=== PATIENT | female | born 1970 | race Caucasian/White ===

== ENCOUNTER 2018-04-04 21:00 | Inpatient (IN) ==
[2018-04-05] MEDS ORDERED: Naloxone 0.4 MG/ML INJ IVP PRN (02:40)
--- NOTE | 2018-04-05 03:31 | Internal Med History&Physical ---
Date of Encounter: 04/05/18 Time of Encounter: 03:23 Internal Medicine - H&P: HPI Chief complaint: Abscess History of present illness: Ms. Gunter is a 47 year old female with past medical history of hypertension, FERMÍN and GERD who initially presented from [facility] with a growing mass on her back which has been progressively getting worse for the past month. She has had a cyst at the same location for the past 10 years. Patient was recently started on antibiotics as the mass seemed to be infected with increasing pain and swelling. She now reports that symptoms are affecting both of her arms in terms of the pain. Patient denies any recent trauma to the region but does report fever and chills as well as nausea. Pain is currently 8 out of 10 in intensity, worse with movement. She denies any upper extremity arm weakness, numbness or tingling. Further denies any numbness tingling or weakness in her lower extremities. Patient had seen a label designer and was planning on doing surgery. However her symptoms continued to get worse and she could not wait any further. A CT scan of the back was performed at [facility] which showed fluid and gas collection within the midline subcutaneous tissue of the upper posterior chest wall with adjacent stranding overlying skin thickening. The collection measured up to 5.3 cm suggestive of an abscess. Patient was mildly tachycardic with a heart rate of 108 soft blood pressure of 103/68. Labs are significant for an elevated white count of 14.4. Surgery was consulted and Dr. Jung reviewed the case and will take the patient for surgical intervention tomorrow morning. Past Med Surg Social Fam HX - Past Medical History Medical history: GERD, hypertension Psychiatric history: no psych history - Past Surgical History Surgical History: cholecystectomy - Social History Smoking Status: Never smoker Smokeless Tobacco Status: No Alcohol use: none Drug use: none Internal Medicine - H&P: Meds Atenolol [Tenormin] 25 mg PO DAILY 04/04/18 [History] BuPROPion [Wellbutrin] 100 mg PO DAILY 04/04/18 [History] Ketorolac [Toradol] 10 mg PO Q6HR 04/04/18 [History] Omeprazole [PriLOSEC] 20 mg PO DAILY 04/04/18 [History] Sulfamethoxazole/Trimeth DS [Bactrim DS] 1 each PO BID 04/04/18 [History] 3 Allergy/AdvReac Type Severity Reaction Status Date / Time codeine Allergy See Verified 04/04/18 16:40 Comments All Systems PM: A 10-system review of systems was performed and is negative for pertinent findings except as documented above in the HPI. - Constitutional Constitutional: no chills, no fever(s), no night sweats - EENT Eyes: no change in vision, no discharge, no pain, no photophobia Ears: no ear discharge, no ear pain, no tinnitus Nose, mouth and throat: no dysphagia, no nasal discharge, no neck pain, no sore throat - Cardiovascular Cardiovascular ROS IM: no chest pain, no diaphoresis, no dyspnea, no lightheadedness, no palpitations, no syncope - Respiratory Respiratory: no cough, no dyspnea, no wheezing, no excessive phlegm production - Gastrointestinal Gastrointestinal: no abdominal pain, no diarrhea, no hematemesis, no hematochezia, no melena, no nausea, no vomiting - Genitourinary Genitourinary: no change in urinary stream, no dysuria, no flank pain, no hematuria - Musculoskeletal Musculoskeletal ROS IM: no numbness, no tingling - Integumentary Integumentary IM: no rash, no unusual bruising - Neurological Neurological ROS: no confusion, no convulsions, no focal weakness, no numbness, no tingling, no tremor(s) - Hematologic/Lymphatic Hematologic/Lymphatic: no easy bruising - Constitutional Vitals: Temp Pulse Resp BP Pulse Ox 98.6 F 77 18 137/81 98 04/05/18 00:47 04/05/18 00:47 04/05/18 00:47 04/05/18 00:47 04/05/18 01:34 Exam: General: Alert and oriented 3. Lying in bed not in acute distress though in pain with movement Skin: Large edematous erythematous region measuring approximately 6 cm x 6 cm on the upper posterior mid thorax. Tenderness elicited to palpation. Lesion is firm and nonfluctuant. HEENT:EOM, pupils equal, round and reactive. Cardiovascular: Normal S1 & S2, no rubs, reactive 6 systolic murmur best appreciated in the second right intercostal space. No JVD. Pulse regular. Lungs:Normal breath sounds, no wheezes or crackles. Abdomen:Soft, non-tender, no rigidity. Extremities:No deformity, no edema or tenderness, no joint swelling or clubbing. Neurological:Normal cognition and motor skills. Pulses:Carotid and radial pulses normal +2. Rest of the physical exam is non contributory - Assessment and plan (1) Abscess of skin or subcutaneous tissue Current Visit: No Status: Acute Assessment and plan: Large mid posterior thorax abscess as evidenced on clinical examination and CT scan findings of fluid and gas collection within the midline subcutaneous tissues of the upper and posterior chest wall with adjacent stranding overlying skin thickening. Measuring 5.3 cm. Patient mildly septic as evidenced by mild tachycardia and an elevated white blood count of 14.4. Lactic acid and [place] was 0.6. Imaging reviewed by Dr. Almaguer with surgery and plan to take patient to the OR tomorrow. We will continue patient on vancomycin and Zosyn. Continue IV fluids. Qualifiers: Qualified Code(s): L02.91 - Cutaneous abscess, unspecified (2) Systolic murmur Current Visit: Yes Status: Acute Assessment and plan: Systolic murmur best appreciated in the right second intercostal space more so. Suspicion for endocarditis in the setting of complicated abscess. Would recommend transthoracic echocardiogram for further assessment. If blood cultures positive, may need to consider a BARBER if findings negative on TTE. (3) Hyponatremia Current Visit: Yes Status: Acute Assessment and plan: Mild in the setting of sepsis. Replete with IV fluids repeat chemistry in the morning. (4) Essential (primary) hypertension Current Visit: Yes Status: Acute Assessment and plan: Blood pressure running soft. Would consider holding atenolol for now. - Time Spent With Patient Total time spent is greater than 50% in coordination of care (as documented) at patient's floor/unit and/or counseling patient:
[2018-04-05] MEDS: Ketorolac 15 MG/ML VIAL IVP PRN ×2 (04:09→10:13)
[2018-04-05] MEDS: 0.9 % Sodium Chloride 1,000 ML IVC SCH ×2 (04:10→12:06)
[2018-04-05] MEDS: *HR* Heparin 5,000 UNIT/ML VIAL SQ SCH ×3 (06:02→21:48)
[2018-04-05] MEDS: Piperacillin/Tazobactam 3.375 GM in 0.9 % Sodium Chloride Mini Bag 100 ML IVPB SCH ×2 (08:15→15:24)
[2018-04-05 08:21] LABS: Alanine Aminotransferase 21 Units/L (7-52); Albumin 3.3 g/dL (3.5-5.7); Albumin/Globulin Ratio 1.1 (1.1-2.2); Alkaline Phosphatase 84 Units/L (34-104); Aspartate Amino Transferase 21 Units/L (13-39); BUN/Creatinine Ratio 16 (6-26); Bilirubin,Total 0.5 mg/dL (0.3-1.0); Blood Urea Nitrogen 9 mg/dL (6-20); Calcium 8.1 mg/dL (8.6-10.3); Carbon Dioxide 16 mEq/L (23-29); Chloride 107 mEq/L (98-107); Globulin 2.9 g/dL (2.4-3.5); Glucose 92 mg/dL (70-105); Osmolality,Calculated 276 (280-300); Potassium 3.9 mEq/L (3.5-5.1); Sodium 134 mEq/L (136-145); Total Protein 6.2 g/dL (6.4-8.9); eGFR For Non-African Americans > 60 (> 60)
[2018-04-05 08:52] LABS: Basophils % 0.3 %; Eosinophils # 0.1 K/mcL (0.0-0.6); Eosinophils % 0.6 %; Hematocrit 36.3 % (35.3-44.9); Hemoglobin 12.1 g/dL (11.5-15.4); Immature Granulocytes % 0.4 % (0-4); Lymphocytes # 1.4 K/mcL (0.6-4.6); Lymphocytes % 10.8 %; Mean Corpuscular HGB Conc 33.3 g/dL (31.6-35.5); Mean Corpuscular Hemoglobin 29.3 pg (28.0-33.3); Mean Platelet Volume 10.5 fL (9.4-12.4); Monocytes # 1.3 K/mcL (0.0-1.3); Monocytes % 10.2 %; Neutrophils # 9.8 K/mcL (1.6-8.9); Platelet Count 222 K/mcL (140-400); Red Blood Count 4.13 M/mcL (3.82-4.97); Red Cell Distribution Width 12.4 % (11.5-14.5); Segmented Neutrophils % 77.7 %
[2018-04-05 08:59] LABS: Mean Corpuscular Volume 87.9 fL (83.0-100.0)
--- NOTE | 2018-04-05 11:56 | Event Note ---
Date of Encounter: 04/05/18 Time of Encounter: 11:53 See full H&P by my colleague from earlier today for details. Upper back abscess, pain is about the same, no fevers, chills, rigors. Noted BP is lower than what was at arrival. Pain control is acceptable per patient. - will hold atenolol for now due to risk of sepsis - cont Zosyn/vancomycin - NPO until seen by GS (discussed by phone)
--- NOTE | 2018-04-05 14:31 | Operative Note ---
Date of procedure: 04/05/18 Pre-op diagnosis: posterior trunk mass Post-op diagnosis: same Procedure: Incision and drainage of back abscess Anesthesia: local Surgeon: Jalen Lind Was there an engineer assistant present: No Estimated blood loss (cc): 2 Specimen: 0 Condition: stable Disposition: floor Procedure in Detail: The area was prepped and draped. The area was injected with lidocaine. The area was incised with an 11 blade knife. Significant pus was drained. Packing was applied.
[2018-04-05] MEDS: traMADol 50 MG TABLET PO PRN ×2 (15:24→21:52)
[2018-04-06] MEDS: Piperacillin/Tazobactam 3.375 GM in 0.9 % Sodium Chloride Mini Bag 100 ML IVPB SCH ×4 (00:17→23:18)
[2018-04-06 02:12] LABS: Hematocrit 32.4 % (35.3-44.9); Mean Corpuscular Hemoglobin 29.3 pg (28.0-33.3); Mean Corpuscular Volume 86.4 fL (83.0-100.0); Mean Platelet Volume 10.3 fL (9.4-12.4); Platelet Count 233 K/mcL (140-400); Red Blood Count 3.75 M/mcL (3.82-4.97); Red Cell Distribution Width 12.6 % (11.5-14.5)
[2018-04-06 02:35] LABS: BUN/Creatinine Ratio 16 (6-26); Blood Urea Nitrogen 9 mg/dL (6-20); Calcium 8.3 mg/dL (8.6-10.3); Carbon Dioxide 24 mEq/L (23-29); Chloride 111 mEq/L (98-107); Glucose 110 mg/dL (70-105); Osmolality,Calculated 273 (280-300); Potassium 3.8 mEq/L (3.5-5.1); Sodium 132 mEq/L (136-145); eGFR For Non-African Americans > 60 (> 60)
[2018-04-06] MEDS: *HR* Heparin 5,000 UNIT/ML VIAL SQ SCH ×3 (06:08→20:57)
[2018-04-06] MEDS: traMADol 50 MG TABLET PO PRN ×2 (06:12→18:34)
[2018-04-06] MEDS ORDERED: Ondansetron 4 MG/2 ML VIAL IVP ONE (09:59)
[2018-04-06] MEDS ORDERED: *HR* FentaNYL (PF) 100 MCG/2 ML VIAL IVP ONE (09:59)
--- NOTE | 2018-04-06 10:00 | General Surgery Progress Note ---
Date of Encounter: 04/06/18 Time of Encounter: 10:00 - Assessment and Plan (1) Abscess of skin or subcutaneous tissue Current Visit: Yes Status: Acute She is POD #1 of incision and drainage of upper mid back abscess. The area remains cellulitic and draining copious amounts of purulent drainage. The area was repacked with 1/4 inch iodoform gauze and covered with a dry dressing. Recommend patient remains in the hospital for another 24 to 48 hours pending cultures and clinical course. She will need home healthcare set up as she has no one to do packing. Referral has been made to social work. Qualifiers: Site of cutaneous abscess: trunk Site of cutaneous abscess of trunk: back Qualified Code(s): L02.212 - Cutaneous abscess of back [any part, except buttock] Subjective Patient reports: no new complaints, still having pain, voiding w/o difficulty, flatus, bowel movement, afebrile Objective Vital Signs - Last 8 Hours Temp Pulse Resp BP Pulse Ox 04/06/18 06:41 97.2 F L 69 15 111/68 97 04/06/18 04:44 98.3 F 70 18 91/58 96 04/06/18 04:00 21 96 Intake and Output 04/05/18 04/06/18 04/06/18 23:59 07:59 15:59 Intake Total 100 / 100 100 / 100 360 / 360 Output Total 1500 / 1500 Balance 100 / 100 -1400 / -1400 360 / 360 Intake: IV Fluids 100 / 100 100 / 100 Zosyn 3.375 GM In 0.9 % Sodium 100 / 100 100 / 100 Chloride (Mini-Bag +) 100 ML @ 25 mls/hr IVPB Q8HR [facility] Rx#: [id number] Oral 0 / 0 0 / 0 360 / 360 Output: Urine 1500 / 1500 Other: Meal Dinner Breakfast Percent of Meal Consumed 85% 75% Weight 126.2 kg Patient Weight 04/06/18 23:59 Weight 126.2 kg - General physical appearance no distress, moderate pain - Eyes normal ocular movement - ENT atraumatic, normocephalic - Neck Neck exam: trachea midline, no venous distension - Respiratory normal expansion, normal respiratory effort, clear to auscultation - Cardiovascular Cardiovascular exam: Present: RRR - Abdomen Abdomen: Present: bowel sounds present, soft, non tender - Incision Incision: Present: open (mid-upper back) - Neurologic normal coordination, normal sensation - Musculoskeletal normal posture - Psychiatric oriented to time, oriented to person, oriented to place, speech is normal, memory intact - Labs 04/06/18 01:44 04/06/18 01:44 Diabetes panel 04/06/18 Range/Units 01:44 Sodium 132 L (136-145) mEq/L Potassium 3.8 (3.5-5.1) mEq/L Chloride 111 H (98-107) mEq/L Carbon Dioxide 24 (23-29) mEq/L BUN 9 (6-20) mg/dL Creatinine 0.57 L (0.60-1.20) mg/dL Glucose 110 H (70-105) mg/dL Calcium 8.3 L (8.6-10.3) mg/dL Calcium panel 04/06/18 Range/Units 01:44 Calcium 8.3 L (8.6-10.3) mg/dL Pituitary panel 04/06/18 Range/Units 01:44 Sodium 132 L (136-145) mEq/L Potassium 3.8 (3.5-5.1) mEq/L Chloride 111 H (98-107) mEq/L Carbon Dioxide 24 (23-29) mEq/L BUN 9 (6-20) mg/dL Creatinine 0.57 L (0.60-1.20) mg/dL Glucose 110 H (70-105) mg/dL Calcium 8.3 L (8.6-10.3) mg/dL Adrenal panel 04/06/18 Range/Units 01:44 Sodium 132 L (136-145) mEq/L Potassium 3.8 (3.5-5.1) mEq/L Chloride 111 H (98-107) mEq/L Carbon Dioxide 24 (23-29) mEq/L BUN 9 (6-20) mg/dL Creatinine 0.57 L (0.60-1.20) mg/dL Glucose 110 H (70-105) mg/dL Calcium 8.3 L (8.6-10.3) mg/dL Consult Discharge Plan - Plan Referrals: Kat Starkey, STAFFING COORDINATOR [Primary Care Provider] -
[2018-04-06] MEDS ORDERED: OXYCODONE Oral CONC 10 MG/0.5 ML ORAL.SYG SL ONE (10:40)
[2018-04-06] MEDS ORDERED: Ondansetron ODT 4 MG TAB.RAPDIS SL ONE (10:41)
--- NOTE | 2018-04-06 17:06 | Internal Med Progress Note ---
Hospitalist Progress Note - Encounter Date of Encounter: 04/06/18 Time of Encounter: 17:04 - Subjective Interval History: Pt states back painful but on pain medication. Denies fever, chills, N/V or diarrhea. Denies CP or SOB. at bedside. - Exam Vitals: Temp Pulse Resp BP Pulse Ox 98.2 F 66 18 97/62 95 04/06/18 15:37 04/06/18 15:37 04/06/18 15:37 04/06/18 15:37 04/06/18 15:37 Exam: General: Alert and oriented 3. Lying in bed not in acute distress though in pain with movement Skin: Large edematous erythematous region measuring approximately 6 cm x 6 cm on the upper posterior mid thorax. Tenderness elicited to palpation. Positive copious amount of drainage. Dressing change per surgery this am. HEENT:EOM, pupils equal, round and reactive. Cardiovascular: Normal S1 & S2, no rubs, reactive 6 systolic murmur best appreciated in the second right intercostal space. No JVD. Pulse regular. Lungs:Normal breath sounds, no wheezes or crackles. Abdomen:Soft, non-tender, no rigidity. Extremities:No deformity, no edema or tenderness, no joint swelling or clubbing. Neurological:Normal cognition and motor skills. Pulses:Carotid and radial pulses normal +2. Rest of the physical exam is non contributory - Assessment and Plan (1) Abscess of skin or subcutaneous tissue Current Visit: Yes Status: Acute Assessment and Plan: Large mid posterior thorax abscess as evidenced on clinical examination and CT scan findings of fluid and gas collection within the midline subcutaneous tissues of the upper and posterior chest wall with adjacent stranding overlying skin thickening. Measuring 5.3 cm. Patient septic on admission as evidenced by mild tachycardia and an elevated white blood count of 14.4. Lactic acid and [place] was 0.6. Imaging reviewed by Dr. Almaguer, surgery team. POD #1 of incision and drainage of upper mid back abscess. Area continues to drain copious amount of purulent drainage. Not planing on taking ot surgery for now will continue patient on vancomycin and Zosyn. Continue IV fluids. Awaiting results cultures and sensitivity. (2) Essential (primary) hypertension Current Visit: Yes Status: Acute Assessment and Plan: Atenolo 25 mg PO QD, however, pt's BP on low side. (3) Hyponatremia Current Visit: Yes Status: Acute Assessment and Plan: Hyponatremia. Will reassess following IVF. (4) Systolic murmur Current Visit: Yes Status: Acute Assessment and Plan: Will check Echo if not already done. DVT Prophylaxis: Heparin - Summary of Assessment and Plan Summary of Assessment and Plan: Ms. Gunter is a 47 year old female with past medical history of hypertension, FERMÍN and GERD who initially presented from [facility] with a growing mass on her back which has been progressively getting worse for the past month. She has had a cyst at the same location for the past 10 years. Patient was recently started on antibiotics as the mass seemed to be infected with increasing pain and swelling. She now reports that symptoms are affecting both of her arms in terms of the pain. Patient denies any recent trauma to the region but does report fever and chills as well as nausea. Pain is currently 8 out of 10 in intensity, worse with movement. Pt is s/p I and D of infected cyst. - Time Spent with Patient Total time spent is greater than 50% in coordination of care (as documented) at patient's floor/unit and/or counseling patient: less than 15 minutes Plan of Care Discussed with: patient Internal Medicine: Result - Labs CBC & Chem 7: 04/06/18 01:44 04/06/18 01:44 Labs: Short CBC 04/06/18 Range/Units 01:44 WBC 9.1 (4.3-11.1) K/mcL Hgb 11.0 L (11.5-15.4) g/dL Hct 32.4 L (35.3-44.9) % Plt Count 233 (140-400) K/mcL BMP 04/06/18 01:44 Sodium 132 L Potassium 3.8 Chloride 111 H Carbon Dioxide 24 BUN 9 Creatinine 0.57 L Glucose 110 H Calcium 8.3 L Consult Discharge Plan - Plan Additional Instructions: Awaiting culture results and antibiotics will be adjusted as deemed appropriate. Possibly in 24 to 48 hours. Referrals: Kat Starkey, ELECTRIC LIFT TRUCK DRIVER [Primary Care Provider] - (1) Abscess of skin or subcutaneous tissue Qualifiers: Site of cutaneous abscess: trunk Site of cutaneous abscess of trunk: back Qualified Code(s): L02.212 - Cutaneous abscess of back [any part, except buttock ]
[2018-04-06] MEDS: Acetaminophen 325 MG TABLET PO PRN (20:57)
[2018-04-07] MEDS: *HR* Heparin 5,000 UNIT/ML VIAL SQ SCH ×3 (05:32→20:38)
[2018-04-07] MEDS: Piperacillin/Tazobactam 3.375 GM in 0.9 % Sodium Chloride Mini Bag 100 ML IVPB SCH ×2 (08:25→16:10)
--- NOTE | 2018-04-07 10:20 | Internal Med Progress Note ---
Hospitalist Progress Note - Encounter Date of Encounter: 04/07/18 Time of Encounter: 10:20 - Exam Vitals: Temp Pulse Resp BP Pulse Ox 98.3 F 61 14 103/69 98 04/07/18 07:17 04/07/18 07:17 04/07/18 07:17 04/07/18 07:17 04/07/18 07:17 Exam: General: Alert and oriented 3. Lying in bed not in acute distress though in pain with movement Skin: Large edematous erythematous region measuring approximately 6 cm x 6 cm on the upper posterior mid thorax. Tenderness elicited to palpation. Positive copious amount of drainage. Dressing change per surgery this am. HEENT:EOM, pupils equal, round and reactive. Cardiovascular: Normal S1 & S2, no rubs, reactive 6 systolic murmur best appreciated in the second right intercostal space. No JVD. Pulse regular. Lungs:Normal breath sounds, no wheezes or crackles. Abdomen:Soft, non-tender, no rigidity. Extremities:No deformity, no edema or tenderness, no joint swelling or clubbing. Neurological:Normal cognition and motor skills. Pulses:Carotid and radial pulses normal +2. Rest of the physical exam is non contributory - Assessment and Plan (1) Sepsis Current Visit: Yes Status: Acute Assessment and Plan: Had elevated WBC and purulent abscess on admission with subjective fevers. S/p incision and drainage. Continue vanc and zosyn. Follow up cultures (2) Abscess of skin or subcutaneous tissue Current Visit: Yes Status: Acute Assessment and Plan: Large mid posterior thorax abscess as evidenced on clinical examination and CT scan findings of fluid and gas collection within the midline subcutaneous tissues of the upper and posterior chest wall with adjacent stranding overlying skin thickening. Measuring 5.3 cm. Patient mildly septic as evidenced by mild tachycardia and an elevated white blood count of 14.4. POD #2 a/p incision adn drainage of upper mid back abscess. Continue on vanc and zosyn. Follow up cultures. WBC trending down (3) Essential (primary) hypertension Current Visit: Yes Status: Acute Assessment and Plan: Continue atenolol. (4) Hyponatremia Current Visit: Yes Status: Acute Assessment and Plan: Continue IV fluids with normal saline as needed (5) Systolic murmur Current Visit: Yes Status: Acute Assessment and Plan: Systolic murmur best appreciated in the right second intercostal space more so. Suspicion for endocarditis in the setting of complicated abscess. Follow up 2D echo and blood cultures DVT Prophylaxis: Heparin sc - Time Spent with Patient Total time spent is greater than 50% in coordination of care (as documented) at patient's floor/unit and/or counseling patient: Internal Medicine: Result - Labs CBC & Chem 7: 04/06/18 01:44 04/06/18 01:44 Consult Discharge Plan - Plan Instructions: Abscess (GEN) Additional Instructions: Awaiting culture results and antibiotics will be adjusted as deemed appropriate. Possibly in 24 to 48 hours. Referrals: Thelma Lind CNP [Advanced Practice Nurse] - 04/15/18 9:15 am Kat Starkey CNP [Primary Care Provider] - Prescriptions: Adhesive Tape [Paper Tape] 1 each TP AD #1 tape Docusate Sodium [Colace] 100 mg PO BID #30 capsule Gauze Bandage [Gauze] 4 each TP AD 30 Days #120 bandage HYDROcodone/Acet 5/325 mg [[place] 5-325 mg] 1 tab PO Q6H PRN 7 Days #28 tab PRN Reason: Pain Ibuprofen 800 mg PO Q8H 30 Days #30 tablet Sodium Chloride [Mesalt] 1 each TP AD #4 bandage (2) Abscess of skin or subcutaneous tissue Qualifiers: Site of cutaneous abscess: trunk Site of cutaneous abscess of trunk: back Qualified Code(s): L02.212 - Cutaneous abscess of back [any part, except buttock ]
--- NOTE | 2018-04-07 11:28 | General Surgery Progress Note ---
Date of Encounter: 04/07/18 Time of Encounter: 10:50 - Assessment and Plan (1) Abscess of skin or subcutaneous tissue Current Visit: Yes Status: Acute She is POD #2 of incision and drainage of upper mid back abscess. The surround cellulitis/erythema has significantly improved. The areas of blisters have resolved, there is minor sloughing noted. There is a large amount of purulent drainage in the wound. We did switch to Mesalt [place] accordingly. She will require home health care for packing (please send 24-hours worth of supplies when patient is d/c'd). OK to d/c when C is in place; antibiotics per primary service. She has a follow-up with surgery on 04/15/2108 at 0915 with Thelma Lind APRN. Surgery will sign off at this time Thank you for allowing us to participate in Ms. Gunter's care. Qualifiers: Site of cutaneous abscess: trunk Site of cutaneous abscess of trunk: back Qualified Code(s): L02.212 - Cutaneous abscess of back [any part, except buttock] Subjective Patient reports: no new complaints, feels better, still having pain, pain is less, voiding w/o difficulty, flatus, bowel movement, afebrile Objective Vital Signs - Last 8 Hours Temp Pulse Resp BP Pulse Ox 04/07/18 07:17 98.3 F 61 14 103/69 98 04/07/18 04:07 97.6 F 66 14 99/61 98 04/07/18 03:40 19 94 Intake and Output 04/06/18 04/07/18 04/07/18 23:59 07:59 15:59 Intake Total 590 / 590 750 / 750 Output Total 600 / 600 0 / 0 Balance -10 / -10 750 / 750 Intake: IV Fluids 350 / 350 350 / 350 Zosyn 3.375 GM In 0.9 % Sodium 100 / 100 100 / 100 Chloride (Mini-Bag +) 100 ML @ 25 mls/hr IVPB Q8HR [facility] Rx#: [id number] Vancocin 1,250 MG In 0.9 % 250 / 250 250 / 250 Sodium Chloride 250 ML @ 166. 667 mls/hr IVPB Q12H [facility] Rx#: [id number] Oral 240 / 240 400 / 400 Output: Urine 600 / 600 0 / 0 Other: Meal Dinner Percent of Meal Consumed 50% Weight 126.6 kg Patient Weight 04/07/18 23:59 Weight 126.6 kg - General physical appearance no distress, moderate pain - ENT normal nares, normal mucosa - Neck Neck exam: trachea midline - Respiratory normal expansion, normal respiratory effort, clear to auscultation - Cardiovascular Cardiovascular exam: Present: RRR - Abdomen Abdomen: Present: bowel sounds present, soft, non tender Hernia: none - Integumentary no abnormal pigmentation, other (See A/P for description) - Neurologic CN 2-12 grossly intact, normal coordination, normal sensation - Musculoskeletal normal posture - Psychiatric oriented to time, oriented to person, oriented to place, speech is normal, memory intact - Labs 04/06/18 01:44 04/06/18 01:44 Consult Discharge Plan - Plan Instructions: Abscess (GEN) Additional Instructions: Awaiting culture results and antibiotics will be adjusted as deemed appropriate. Possibly in 24 to 48 hours. Referrals: Kat Starkey CNP [Primary Care Provider] - Thelma Lind CNP [Advanced Practice Nurse] - 04/15/18 9:15 am Prescriptions: Adhesive Tape [Paper Tape] 1 each TP AD #1 tape Docusate Sodium [Colace] 100 mg PO BID #30 capsule Gauze Bandage [Gauze] 4 each TP AD 30 Days #120 bandage HYDROcodone/Acet 5/325 mg [[place] 5-325 mg] 1 tab PO Q6H PRN 7 Days #28 tab PRN Reason: Pain Ibuprofen 800 mg PO Q8H 30 Days #30 tablet Sodium Chloride [Mesalt] 1 each TP AD #4 bandage
[2018-04-07] MEDS ORDERED: Ketorolac 15 MG/ML VIAL IVP PRN (11:32)
[2018-04-07] MEDS ORDERED: traMADol 50 MG TABLET PO PRN (11:32)
[2018-04-07] MEDS ORDERED: Perflutren Lipid Microsphere 1.3 ML in 0.9 % Sodium Chloride 8.7 ML IVP ONE ×2 (15:10→15:30)
[2018-04-07] MEDS ORDERED: Perflutren Lipid Microsphere 2 ML VIAL ONE (15:15)
[2018-04-07] MEDS: Acetaminophen 325 MG TABLET PO PRN (20:38)
[2018-04-08] MEDS: *HR* Heparin 5,000 UNIT/ML VIAL SQ SCH (05:21)
[2018-04-08 05:58] LABS: Basophils # 0.1 K/mcL (0.0-0.2); Basophils % 0.9 %; Eosinophils # 0.3 K/mcL (0.0-0.6); Eosinophils % 4.8 %; Hematocrit 36.9 % (35.3-44.9); Hemoglobin 12.3 g/dL (11.5-15.4); Immature Granulocytes % 0.5 % (0-4); Lymphocytes # 1.6 K/mcL (0.6-4.6); Lymphocytes % 26.8 %; Mean Corpuscular HGB Conc 33.3 g/dL (31.6-35.5); Mean Corpuscular Hemoglobin 29.1 pg (28.0-33.3); Mean Corpuscular Volume 87.2 fL (83.0-100.0); Monocytes # 0.4 K/mcL (0.0-1.3); Monocytes % 6.2 %; Neutrophils # 3.5 K/mcL (1.6-8.9); Platelet Count 292 K/mcL (140-400); Red Blood Count 4.23 M/mcL (3.82-4.97); Red Cell Distribution Width 12.1 % (11.5-14.5); Segmented Neutrophils % 60.8 %
[2018-04-08 06:19] LABS: BUN/Creatinine Ratio 13 (6-26); Blood Urea Nitrogen 8 mg/dL (6-20); Calcium 8.6 mg/dL (8.6-10.3); Carbon Dioxide 29 mEq/L (23-29); Chloride 105 mEq/L (98-107); Glucose 103 mg/dL (70-105); Magnesium 1.9 mg/dL (1.6-2.6); Osmolality,Calculated 287 (280-300); Phosphorous 3.2 mg/dL (2.7-4.5); Sodium 139 mEq/L (136-145); eGFR For Non-African Americans > 60 (> 60)
[2018-04-08 07:25] VITALS: BP 154/88
--- NOTE | 2018-04-08 07:58 | Discharge Summary ---
Orders not resulted at time of discharge: Pending orders 04/05/18 13:24 Culture,Blood [BC] Routine 04/09/18 04:00 Basic Metabolic Panel AM 0400 CBC [Complete Blood Count] [HEME] AM 0400 Magnesium AM 0400 Phosphorous AM 0400 04/10/18 04:00 Basic Metabolic Panel AM 0400 CBC [Complete Blood Count] [HEME] AM 0400 Magnesium AM 0400 Phosphorous AM 0400 04/11/18 04:00 Basic Metabolic Panel AM 0400 CBC [Complete Blood Count] [HEME] AM 0400 Magnesium AM 0400 Phosphorous AM 0400 04/12/18 04:00 Basic Metabolic Panel AM 0400 CBC [Complete Blood Count] [HEME] AM 0400 Magnesium AM 0400 Phosphorous AM 0400 04/13/18 04:00 Basic Metabolic Panel AM 0400 CBC [Complete Blood Count] [HEME] AM 0400 Magnesium AM 0400 Phosphorous AM 0400 Date of Encounter: 04/08/18 Time of Encounter: 08:00 - Discharge Diagnosis (1) Sepsis Priority: Primary Status: Acute Assessment and Plan: 47 year old female with past medical history of hypertension, FERMÍN and GERD who initially presented from [facility] with a growing mass on her back which has been progressively getting worse for the past month. She has had a cyst at the same location for the past 10 years. Patient was recently started on antibiotics as the mass seemed to be infected with increasing pain and swelling. A CT scan of the back was performed at [place] which showed fluid and gas collection within the midline subcutaneous tissue of the upper posterior chest wall with adjacent stranding overlying skin thickening. The collection measured up to 5.3 cm suggestive of an abscess. Patient was mildly tachycardic with a heart rate of 108 soft blood pressure of 103/68. She was assessed on admission with sepsis due to an infected skin abscess. She had an elevated white blood cell count of 14.4 on admission, had fevers at home as well as a low grade fever of 100 on admission. She was started on antibiotics with vanc and zsoyn and seen by general surgery. She underwent an incision and drainage on 04/05/18 and tolerated procedure well with no acute complications. She was continued on vanc and zosyn and will be discharged on a course of augmentin. Her leukocytosis resolved on antibiotics She will follow up with general surgery on discharge. Blood cultures were preliminary negative and a 2D echo showed no valvular abnormalities. Qualifiers: Sepsis type: sepsis due to unspecified organism Qualified Code(s): A41.9 - Sepsis, unspecified organism (2) Abscess of skin or subcutaneous tissue Priority: Primary Status: Acute Qualifiers: Site of cutaneous abscess: trunk Site of cutaneous abscess of trunk: back Qualified Code(s): L02.212 - Cutaneous abscess of back [any part, except buttock] (3) Essential (primary) hypertension Priority: Secondary Status: Acute (4) Hyponatremia Priority: Secondary Status: Acute (5) Systolic murmur Priority: Secondary Status: Acute Hospital course: Ms. Gunter is a 47 year old female - Time Spent with Patient Total time spent providing and/or coordinating discharge services: - Discharge Medications Prescriptions: Adhesive Tape [Paper Tape] 1 each TP AD #1 tape Amoxicillin/Clavulanate [Augmentin] 875 mg PO BIDWM 2 Days #4 tablet Docusate Sodium [Colace] 100 mg PO BID #30 capsule Gauze Bandage [Gauze] 4 each TP AD 30 Days #120 bandage HYDROcodone/Acet 5/325 mg [[place] 5-325 mg] 1 tab PO Q6H PRN 7 Days #28 tab PRN Reason: Pain Ibuprofen 800 mg PO Q8H 30 Days #30 tablet Sodium Chloride [Mesalt] 1 each TP AD #4 bandage Home Medications: Atenolol [Tenormin] 25 mg PO DAILY 04/04/18 [History] BuPROPion [Wellbutrin] 100 mg PO DAILY 04/04/18 [History] Omeprazole [PriLOSEC] 20 mg PO DAILY 04/04/18 [History] Adhesive Tape [Paper Tape] 1 each TP AD #1 tape 04/07/18 [Rx] Docusate Sodium [Colace] 100 mg PO BID #30 capsule 04/07/18 [Rx] Gauze Bandage [Gauze] 4 each TP AD 30 Days #120 bandage 04/07/18 [Rx] HYDROcodone/Acet 5/325 mg [[place] 5-325 mg] 1 tab PO Q6H PRN 7 Days #28 tab 04/07 [Rx] Ibuprofen 800 mg PO Q8H 30 Days #30 tablet 04/07/18 [Rx] Sodium Chloride [Mesalt] 1 each TP AD #4 bandage 04/07/18 [Rx] Amoxicillin/Clavulanate [Augmentin] 875 mg PO BIDWM 2 Days #4 tablet 04/08/18 [ Rx] Allergies/Adverse Reactions: 3 Allergy/AdvReac Type Severity Reaction Status Date / Time codeine Allergy See Verified 04/04/18 16:40 Comments Date of admission: 04/04/18 23:50 Primary care physician: Kat Starkey CNP Consults: 04/05/18 13:39 Consult to Surgery [CONS] Routine Consulting Provider: Jalen Lidn Reason for Consult: abscess to upper back Call Completed: No 04/06/18 10:43 Consult to Invasive Line Access Team [CONS] Routine Reason for Consult: epiv Line Type: EPIV 04/06/18 11:25 Consult to Office Chair Assembler (W&C) [CONS] Routine Reason For Exam: Reason for SW Consult: C for dialy wound packing. Patient has no one who can assist with packing and will be unable to reach the area herself. - Constitutional Vitals: Temp Pulse Resp BP Pulse Ox 98.3 F 67 14 154/88 99 04/08/18 07:20 04/08/18 07:20 04/08/18 07:20 04/08/18 07:20 04/08/18 07:20 Exam: General: Alert and oriented 3. Lying in bed not in acute distress though in pain with movement Skin: Large edematous erythematous region measuring approximately 6 cm x 6 cm on the upper posterior mid thorax. Tenderness elicited to palpation. Positive copious amount of drainage. Dressing change per surgery this am. HEENT:EOM, pupils equal, round and reactive. Cardiovascular: Normal S1 & S2, no rubs, reactive 6 systolic murmur best appreciated in the second right intercostal space. No JVD. Pulse regular. Lungs:Normal breath sounds, no wheezes or crackles. Abdomen:Soft, non-tender, no rigidity. Extremities:No deformity, no edema or tenderness, no joint swelling or clubbing. Neurological:Normal cognition and motor skills. Pulses:Carotid and radial pulses normal +2. Rest of the physical exam is non contributory - Head Head exam: Present: atraumatic, normocephalic - Eye Eye exam: Present: PERRL, conjuntiva pink, sclera anicteric Pupils: Present: PERRL - Neck Neck exam general surgery: Present: supple, trachea midline. Absent: lymphadenopathy - Respiratory Respiratory exam: Present: CTAB. Absent: accessory muscle use, rales, rhonchi, wheezes - Cardiovascular Cardiovascular exam: Present: RRR, +S1, +S2. Absent: diastolic murmur, gallop, rubs, systolic murmur - GI/Abdominal GI/Abdominal exam: Present: normal bowel sounds, soft, no peritoneal signs. Absent: distended, tenderness - Extremities Exam Extremities exam: Present: warm, radial pulses palpable and symmetrical. Absent : calf tenderness, cyanotic, pedal edema - Neurological Exam Neurological exam: Present: CN II-XII intact, oriented X3, no focal deficits. Absent: pronater drift, facial droop, speech deficit - Skin Skin exam: Present: dry, intact - Patient Status Disposition: Home Health Service - Discharge Instructions Instructions: Abscess (GEN) Follow Up With: Thelma Lind CNP [Advanced Practice Nurse] - 04/15/18 9:15 am Kat Starkey CNP [Primary Care Provider] - Additional Instructions: Awaiting culture results and antibiotics will be adjusted as deemed appropriate. Possibly in 24 to 48 hours.
--- NOTE | 2018-04-08 08:03 | Physician Discharge Referral ---
Home Health/Hosp Referral Info Transfer to: Home Health - Diagnosis (1) Sepsis Priority: Primary Status: Acute (2) Abscess of skin or subcutaneous tissue Priority: Primary Status: Acute (3) Essential (primary) hypertension Priority: Secondary Status: Acute (4) Hyponatremia Priority: Secondary Status: Acute (5) Systolic murmur Priority: Secondary Status: Acute - Respiratory Orders Smoking Cessation: Smoking cessation has been advised. For more information, call the [place] Tobacco Quit Line at 0-834-NPVL-NOW. - Diet/Nutrition Diet/Nutrition Orders: Regular - Services Needed Following services are medically necessary services: Nursing, Home Health Aide, Physical Therapy - Transfer Medications Prescriptions: Adhesive Tape [Paper Tape] 1 each TP AD #1 tape Amoxicillin/Clavulanate [Augmentin] 875 mg PO BIDWM 2 Days #4 tablet Docusate Sodium [Colace] 100 mg PO BID #30 capsule Gauze Bandage [Gauze] 4 each TP AD 30 Days #120 bandage HYDROcodone/Acet 5/325 mg [[place] 5-325 mg] 1 tab PO Q6H PRN 7 Days #28 tab PRN Reason: Pain Ibuprofen 800 mg PO Q8H 30 Days #30 tablet Sodium Chloride [Mesalt] 1 each TP AD #4 bandage Home Medications: Atenolol [Tenormin] 25 mg PO DAILY 04/04/18 [History] BuPROPion [Wellbutrin] 100 mg PO DAILY 04/04/18 [History] Omeprazole [PriLOSEC] 20 mg PO DAILY 04/04/18 [History] Adhesive Tape [Paper Tape] 1 each TP AD #1 tape 04/07/18 [Rx] Docusate Sodium [Colace] 100 mg PO BID #30 capsule 04/07/18 [Rx] Gauze Bandage [Gauze] 4 each TP AD 30 Days #120 bandage 04/07/18 [Rx] HYDROcodone/Acet 5/325 mg [[place] 5-325 mg] 1 tab PO Q6H PRN 7 Days #28 tab 04/07 [Rx] Ibuprofen 800 mg PO Q8H 30 Days #30 tablet 04/07/18 [Rx] Sodium Chloride [Mesalt] 1 each TP AD #4 bandage 04/07/18 [Rx] Amoxicillin/Clavulanate [Augmentin] 875 mg PO BIDWM 2 Days #4 tablet 04/08/18 [ Rx] Allergies/Adverse Reactions: 3 Allergy/AdvReac Type Severity Reaction Status Date / Time codeine Allergy See Verified 04/04/18 16:40 Comments Certification: Further, I certify that my clinical findings support that this patient is homebound (i.e. absences from home require considerable and taxing effort and are for medical reasons or restorationist services or infrequently or short duration when for other reasons) because: Homebound Reason: Patient requires assistance of a person or device to safely leave home Attestation: My signature below is to certify that this patient is under my care and that I, or nurse practitioner, or a physician's specimen preparation assistant working with me, has a face-to -face encounter with this patient.
[2018-04-08] MEDS: Piperacillin/Tazobactam 3.375 GM in 0.9 % Sodium Chloride Mini Bag 100 ML IVPB SCH ×2 (09:39)
[2018-04-08] MEDS ORDERED: Aminoglycoside Consult 1 EACH MC ONE (12:25)
== END 2018-04-08 12:26 | disposition home health service (06) | DRG 871 ==
LOC: 3ANU → SUATTDRO 23:50
PROVIDERS: ADMIT Pediatrics; ATTEND Student in an Organized Health Care Education/Training Program